=== PATIENT | female | born 1945 | race Caucasian/White ===

== ENCOUNTER 2018-01-14 06:42 | Day surgery (SDC) | payer OTHER ==
[~2018-01-14 06:42] MED LIST: CEFAZOLIN 2 GM/50 ML (PMX) 50 ML IVPB; SOD CHLORIDE 0.9% 1,000 ML IV
[2018-01-14] MEDS ORDERED: EPHEDrine SULFATE 50 MG/5 ML SYG (07:00)
[2018-01-14] MEDS ORDERED: FENTAnyl 50 MCG/ML VIAL (14:12)
[2018-01-14] MEDS ORDERED: PROPOFOL 20 ML (14:13)
[2018-01-14] MEDS ORDERED: MIDAZOLAM 1 MG/ML 2 ML INJ (14:28)
[2018-01-14] MEDS ORDERED: ONDANSETRON 4 MG INJ IV (14:30)
[2018-01-14] MEDS ORDERED: MEPERIDINE 25 MG INJ IV (14:30)
[2018-01-14] MEDS ORDERED: DIPHENHYDRAMINE 50 MG INJ IV (14:30)
[2018-01-14] MEDS ORDERED: FENTAnyl 50 MCG/ML VIAL IV (14:30)
[2018-01-14] MEDS ORDERED: HYDROmorphONE (0.2 MG/ML) 10ML SYG IV ×2 (14:30)
[2018-01-14] MEDS ORDERED: PROCHLORPERAZINE 10 MG INJ IV (14:30)
[2018-01-14] MEDS ORDERED: FAMOTIDINE 20 MG INJ (14:32)
[2018-01-14] MEDS ORDERED: ONDANSETRON 4 MG INJ (14:32)
[2018-01-14] MEDS ORDERED: CEFAZOLIN 1 GM INJ (14:39)
[2018-01-14] MEDS ORDERED: hydrALAzine 20 MG INJ IV (15:30)
[2018-01-14] MEDS ORDERED: HYDROCODONE/APAP (7.5/325) TAB PO (15:30)
== END 2018-01-14 17:00 | disposition home or self-care (01) ==
LOC: SDS 06:42
DX: N60.12 Diffuse cystic mastopathy of left breast (principal); N60.22 Fibroadenosis of left breast; E03.9 Hypothyroidism, unspecified; I10 Essential (primary) hypertension; E11.9 Type 2 diabetes mellitus without complications; E78.5 Hyperlipidemia, unspecified
CPT/HCPCS: 19301; 71045; 82962; 88307; 93005